=== PATIENT | female | born 1945 | race Caucasian/White ===

== ENCOUNTER → 2017-07-01 | Outpatient (CLI) | payer OTHER, MEDICAID ==
[~2017-07-01] MED LIST: BENICAR40 MG PO; BENTYL10 MG PO; CIPRO250 M1 PO; CIPRO500 MG PO; CIPROFLOXACIN500 M1 PO; COZAAR; COZAAR 25 MG TA25 M1 PO; COZAAR 50 MG TA50 M1 PO; COZAAR100 MG PO; DIOVAN320 MG PO; FENTANYL PA25 MCG/HR TP; FLAGYL500 MG PO; FLEXERIL PO; FLONASE 0.05%50 MCG NASAL; HYDROCHLOROTH12.5 M1 PO; HYDROCHLOROTH12.5 MG PO; HYDROCHLOROTHIA25 M2 PO; K-DUR 20 MEQ T20 MEQ PO; KLOR-CON 10 ER10 MEQ PO; LEXAPRO 10 MG T10 MG PO; LIDODERM 5%1 PATCH TOP; LYRICA 75 MG CA75 MG PO; MAGNESIUM OXID400 MG PO; MINIPRIN81 MG PO; MIRALAX17 GM PO; NEURONTIN 300300 M1 PO; NEXIUM40 MG PO; NORVASC2.5 MG PO; PERCOCET 5-3251 EACH PO; POTASSIUM20 PO; QUESTRAN PACKET4 GM PO; RANITIDINE 150150 M1 PO; SIMVASTATIN40 MG PO; TOPROL XL50 MG PO; TRAMADOL 50 MG50 MG PO; ULTRAM50 MG PO; ZANTAC 150MG T150 MG PO; ZOFRAN ODT4 MG PO
[2017-07-01 10:26] LABS: CALCIUM 9.3 mg/dL (8.5-10.1); CREATININE 0.9 mg/dL (0.6-1.3); POTASSIUM 4.1 mmol/L (3.5-5.1)
== END ==
LOC: M.LAB 01:32
PROVIDERS: Anesthesiology
DX: E87.1 Hypo-osmolality and hyponatremia (principal)

== ENCOUNTER 2017-11-11 16:49 | Inpatient (IN) | payer OTHER, MEDICAID ==
[~2017-11-11] VITALS: Ht 162.6 cm; Wt 62.1 kg
[~2017-11-11 16:49] MED LIST changes: -MIRALAX17 GM PO; -NORVASC2.5 MG PO
[2017-11-11 16:50] VITALS: BP 169/69
[2017-11-11 17:10] LABS: ABSOLUTE LYMPHOCYTES 1.6 thou/uL (0.8-5.3); ABSOLUTE MONOCYTES 0.3 thou/uL (0.0-1.2); ABSOLUTE NEUTROPHILS 6.1 thou/uL (1.6-8.1); BASOPHILS 0.4 %; EOSINOPHILS 0.4 %; HEMOGLOBIN 10.8 gm/dL (12.0-15.0); LYMPHOCYTES 20.2 %; MCH 32.6 pg (26.0-34.0); MCHC 34.8 g/dL (28.0-37.0); MCV 93.7 fL (80.0-100.0); MONOCYTES 3.6 %; MPV 6.7 fl. (7.2-11.1); NUCLEATED RBCS 0 /100WBC; PLATELET COUNT* 263 thou/uL (150-400); POLYS 75.4 %; RBC 3.31 mil/uL (4.20-5.00); RDW-CV 13.2 % (10.5-14.5); WBC 8.2 thou/uL (4.0-11.0)
[2017-11-11 17:21] LABS: ANION GAP 7 mmol/L (7-16); BUN 6 mg/dL (7-18); CALCIUM 7.9 mg/dL (8.5-10.1); CHLORIDE 96 mmol/L (98-107); CO2 27 mmol/L (21-32); CREATININE 0.8 mg/dL (0.6-1.3); GLUCOSE 94 mg/dL (70-99); POTASSIUM 3.9 mmol/L (3.5-5.1); SODIUM 130 mmol/L (136-145)
[2017-11-11 17:27] LABS: ALBUMIN 3.2 g/dL (3.4-5.0); ALKALINE PHOSPHATASE 54 U/L (46-116); LIPASE 97 U/L (73-393); SGOT 25 U/L (15-37); SGPT 19 U/L (30-65); TOTAL BILIRUBIN 0.4 mg/dL (<0.1-1.0); TOTAL PROTEIN 5.9 g/dL (6.4-8.2); TROPONIN-I LEVEL <0.06 ng/mL (<0.06)
[2017-11-11 17:29] LABS: APTT 27.4 Seconds (25.0-31.3); INR 1.1; PROTIME 10.7 Seconds (9.20-11.50)
[2017-11-11 18:46] LABS: URINE BILIRUBIN NEGATIVE (Negative); URINE BLOOD TRACE (Negative); URINE CLARITY CLEAR; URINE COLOR YELLOW; URINE GLUCOSE-RANDOM NEGATIVE (Negative); URINE KETONES NEGATIVE (Negative); URINE LEUKOCYTES-REFLEX NEGATIVE (Negative); URINE NITRITE-REFLEX NEGATIVE (Negative); URINE PROTEIN NEGATIVE (Negative); URINE SPECIFIC GRAVITY <= 1.005 (1.005-1.030); URINE UROBILINOGEN 0.2 E.U./dl (0.2-1.0)
[2017-11-11 21:30] VITALS: BP 111/67
[2017-11-11 21:31] VITALS: BP 147/52
--- NOTE | 2017-11-12 00:43 | NUR ---
2123 ALERT AND ORIENTED X 4 FEMALE PATIENT TO BED 114 BY CART FROM ER IN STABLE CONDITION. ADMISSION ROUTINES IN PROGRESS. 1 LITER SOAPS SUDS ENEMA PROVIDED AT 2200. PATIENT TOLERATED WELL AND WAS ABLE TO RETAIN ALL OF ENEMA FOR 15 MINUTES. MOD LARGE RETURN MOSTLY WATERY WITH SOME THICKER LIQUID STOOL TOWARDS END. NO FORMED BM. PINK AB-RECTAL AREA. CREAM APPLIED. VITAL SIGNS STABLE. PATIENT REFUSED ALL PM ORAL MEDICATIONS. IVF'S PER ORDERS. PATIENT CURRENTLY RESTING QUIETLY. CONTINUE TO MONITOR.
[2017-11-12 04:41] VITALS: BP 133/47
[2017-11-12 04:43] LABS: HEMATOCRIT 30.8 % (37.0-47.0); HEMOGLOBIN 10.6 gm/dL (12.0-15.0); MCH 32.6 pg (26.0-34.0); MCHC 34.4 g/dL (28.0-37.0); MCV 94.6 fL (80.0-100.0); MPV 7.4 fl. (7.2-11.1); RBC 3.26 mil/uL (4.20-5.00); RDW-CV 13.4 % (10.5-14.5); WBC 8.2 thou/uL (4.0-11.0)
--- NOTE | 2017-11-12 05:02 | NUR ---
PATIENT HAS REMAINED ALERT AND ORIENTED X 4 FROM ARRIVAL TO UNIT AND RESTING AT INTERVALS ON HOURLY ROUNDS. HAD AN ADDITIONAL SMALL HARD BM DURING THE NIGHT AFTER EARLIER ENEMA RETURN. MEDICATED X 1 FOR GENRALIZED ACHES. VITAL SIGNS STABLE. CONTINUE TO MONITOR.
[2017-11-12 05:05] LABS: CALCIUM 7.7 mg/dL (8.5-10.1); CREATININE 0.8 mg/dL (0.6-1.3); POTASSIUM 3.9 mmol/L (3.5-5.1)
[2017-11-12 05:09] LABS: MAGNESIUM 1.6 mg/dL (1.8-2.4); TOTAL BILIRUBIN 0.4 mg/dL (<0.1-1.0); TOTAL PROTEIN 5.1 g/dL (6.4-8.2)
[2017-11-12 08:00] VITALS: BP 124/58
[2017-11-12] MEDS ORDERED: MIRALAX17 GM PO (09:17)
--- NOTE | 2017-11-12 10:36 | EKG ---
[place] [address] ELECTROCARDIOGRAM REPORT Name: ANGLE HERNANDEZ Room: [address] ADM IN M.R.#: [id number] Admission: 11/11/17 Attend Phys: Linda Fraire MD Discharge: Date of : 41 Report #: [id number] THIS REPORT FOR: //name// [facility] ED Test Date: 2017-11-11 Test Time: 16:55:39 Pat Name: ANGLE HERNANDEZ Department: Room: [facility] Gender: F Survey Superintendent: ARISTIDES : 1945 Requested By: Dustin Anderson Order Number: [id number] MD: Stef Juarez Measurements Intervals [place] Rate: 57 P: 79 IA: 154 QRS: 67 QRSD: 95 T: 65 QT: 431 QTc: 420 Interpretive Statements Sinus rhythm Nonspecific T abnormalities, anterior leads Compared to ECG 01/11/2017 12:42:33 No significant changes Electronically Signed On 11-12-2017 10:36:06 CDT by Stef Juarez [email or web address] <ELECTRONICALLY SIGNED> By: Stef Juarez MD, [facility] 11/12/17 1036 1655 1655 Stef Juarez MD, [facility] /EPI
--- NOTE | 2017-11-12 10:56 | NUR ---
SW met with pt to complete initial assessment, introduce self, and SW role as well as discuss dc planning. Pt alert, oriented, pleasant. Pt lives at home alone in an Independent Living apt at [facility]. Pt says she has nice neighbors and supportive staff at [facility]. Pt hopeful to be able to dc home later today and has a son or friend who would be able to provide ride home. No other known dc needs at this time. Pt expressed interest in spiritual care visit and communion, SW spoke with Niyah who plans to visit with pt.
--- NOTE | 2017-11-12 11:09 | NUR ---
6471 ASSUMED CARE OF PATIENT. PLEASE SEE DOCUMENTED ASSESSMENT. PATIENT WANTS NO MORE LAXATIVES AND SAYS ABDOMINAL PAIN IS RESOLVED.
--- NOTE | 2017-11-12 11:14 | NUR ---
1030 BARBOZA CATHETER REMOVED. PLAN IS FOR DISCHARGE LATER
[2017-11-12 12:35] VITALS: BP 124/58
--- NOTE | 2017-11-12 13:26 | NUR ---
IV DISCONTINUED AND DISCHARGE EDUCATION COMPLETED
== END 2017-11-12 13:50 | disposition home or self-care (01) | DRG 389 ==
LOC: M.ERS 16:49 → M.TBA-ER 18:31 → M.ORTHSURG 18:31
PROVIDERS: Family Medicine; ADMIT Internal Medicine
DX: K56.41 Fecal impaction (principal); E87.1 Hypo-osmolality and hyponatremia; I10 Essential (primary) hypertension; K21.9 Gastro-esophageal reflux disease without esophagitis; R33.9 Retention of urine, unspecified; F32.9 Major depressive disorder, single episode, unspecified; E78.00 Pure hypercholesterolemia, unspecified; G89.29 Other chronic pain; M54.9 Dorsalgia, unspecified; K58.9 Irritable bowel syndrome, unspecified; F17.210 Nicotine dependence, cigarettes, uncomplicated; Z90.49 Acquired absence of other specified parts of digestive tract; Z90.710 Acquired absence of both cervix and uterus; Z79.51 Long term (current) use of inhaled steroids; Z79.899 Other long term (current) drug therapy; Z88.5 Allergy status to narcotic agent; Z88.8 Allergy status to other drugs, medicaments and biological substances; Z80.8 Family history of malignant neoplasm of other organs or systems; Z83.3 Family history of diabetes mellitus

== ENCOUNTER 2018-02-11 06:29 | Inpatient (IN) | payer OTHER, MEDICAID ==
[~2018-02-11] VITALS: Ht 162.6 cm; Wt 58.1 kg
[~2018-02-11 06:29] MED LIST changes: +MIRALAX17 GM PO
[2018-02-11 06:31] VITALS: BP 119/55
[2018-02-11] MEDS ORDERED: NORVASC2.5 MG PO (06:40)
[2018-02-11] MEDS ORDERED: SIMVASTATIN40 MG PO (06:40)
[2018-02-11] MEDS ORDERED: DIOVAN320 MG PO (06:40)
[2018-02-11 06:58] LABS: ABSOLUTE EOSINOPHILS 0.1 thou/uL (0.0-0.7); ABSOLUTE LYMPHOCYTES 1.1 thou/uL (0.8-5.3); ABSOLUTE MONOCYTES 0.3 thou/uL (0.0-1.2); ABSOLUTE NEUTROPHILS 7.6 thou/uL (1.6-8.1); BASOPHILS 0.3 %; EOSINOPHILS 1.3 %; HEMATOCRIT 36.7 % (37.0-47.0); HEMOGLOBIN 12.3 gm/dL (12.0-15.0); LYMPHOCYTES 11.8 %; MCH 31.9 pg (26.0-34.0); MCHC 33.5 g/dL (28.0-37.0); MCV 95.3 fL (80.0-100.0); MONOCYTES 2.9 %; NUCLEATED RBCS 0 /100WBC; PLATELET COUNT* 307 thou/uL (150-400); POLYS 83.7 %; RBC 3.85 mil/uL (4.20-5.00); RDW-CV 13.1 % (10.5-14.5); WBC 9.1 thou/uL (4.0-11.0)
[2018-02-11 07:03] LABS: CALCIUM 8.6 mg/dL (8.5-10.1); POTASSIUM 3.6 mmol/L (3.5-5.1)
[2018-02-11 07:07] LABS: ALBUMIN 3.5 g/dL (3.4-5.0); TOTAL BILIRUBIN 0.2 mg/dL (<0.1-1.0); TOTAL PROTEIN 6.4 g/dL (6.4-8.2)
[2018-02-11 08:55] VITALS: BP 128/55
[2018-02-11 11:29] VITALS: BP 116/62
[2018-02-11 16:00] VITALS: BP 103/45
[2018-02-11 20:40] VITALS: BP 112/57
[2018-02-12 04:14] LABS: HEMOGLOBIN 10.6 gm/dL (12.0-15.0); MCH 32.6 pg (26.0-34.0); MCHC 34.2 g/dL (28.0-37.0); MCV 95.3 fL (80.0-100.0); MPV 7.4 fl. (7.2-11.1); RBC 3.25 mil/uL (4.20-5.00); RDW-CV 13.5 % (10.5-14.5); WBC 4.6 thou/uL (4.0-11.0)
[2018-02-12 04:21] LABS: CALCIUM 8.4 mg/dL (8.5-10.1); CREATININE 0.7 mg/dL (0.6-1.3); MAGNESIUM 1.3 mg/dL (1.8-2.4); POTASSIUM 3.4 mmol/L (3.5-5.1)
[2018-02-12 04:43] LABS: URINE BILIRUBIN NEGATIVE (Negative); URINE BLOOD TRACE (Negative); URINE CLARITY CLEAR; URINE COLOR YELLOW; URINE GLUCOSE-RANDOM NEGATIVE (Negative); URINE KETONES NEGATIVE (Negative); URINE LEUKOCYTES-REFLEX TRACE (Negative); URINE NITRITE-REFLEX NEGATIVE (Negative); URINE PROTEIN NEGATIVE (Negative); URINE UROBILINOGEN 0.2 E.U./dl (0.2-1.0)
[2018-02-12 05:02] LABS: MUCUS 4-6 Moderate strn/LPF (None Seen); RENAL EPITHELIAL CELLS 0-3 Few /LPF (None Seen); SQUAMOUS 0-3 Few /LPF (0-3)
[2018-02-12 05:03] LABS: BACTERIA-REFLEX 1-9 Few /HPF (None Seen); CRYSTALS None Seen /LPF (None Seen); URINE RBC 0-2 Rare /HPF (0-2); URINE WBC-REFLEX 0-5 Rare /HPF (0-5)
[2018-02-12 05:04] LABS: HYALINE CASTS 4-10 Moderate /LPF (None Seen)
[2018-02-12 05:06] VITALS: BP 118/49
[2018-02-12 12:00] VITALS: BP 120/48
[2018-02-12 16:00] VITALS: BP 106/61
[2018-02-12 19:45] VITALS: BP 119/42
[2018-02-13 04:00] VITALS: BP 123/60
[2018-02-13 08:20] VITALS: BP 126/59
[2018-02-13 14:30] VITALS: BP 126/59
== END 2018-02-13 15:40 | disposition home or self-care (01) | DRG 392 ==
LOC: M.ERS 06:29 → M.TBA-ER 07:42 → M.3W 07:42
PROVIDERS: Emergency Medicine; ADMIT Internal Medicine
DX: A08.4 Viral intestinal infection, unspecified (principal); I10 Essential (primary) hypertension; F17.210 Nicotine dependence, cigarettes, uncomplicated; K21.9 Gastro-esophageal reflux disease without esophagitis; F32.9 Major depressive disorder, single episode, unspecified; R55 Syncope and collapse; E78.00 Pure hypercholesterolemia, unspecified; E86.0 Dehydration; K58.0 Irritable bowel syndrome with diarrhea; Z88.5 Allergy status to narcotic agent; Z88.8 Allergy status to other drugs, medicaments and biological substances; Z90.49 Acquired absence of other specified parts of digestive tract; Z90.711 Acquired absence of uterus with remaining cervical stump; Z79.899 Other long term (current) drug therapy

== ENCOUNTER 2018-03-04 14:45 | Emergency (ER) | payer OTHER, MEDICAID ==
[~2018-03-04] VITALS: Ht 162.6 cm; Wt 54.9 kg
[~2018-03-04 14:45] MED LIST changes: +NORVASC2.5 MG PO
[2018-03-04] MEDS ORDERED: CHOLESTYRAMINE P4 GM PO (14:59)
[2018-03-04] MEDS ORDERED: PROBIOTIC1 EAC1 PO (15:00)
[2018-03-04] MEDS ORDERED: VITAMIN B-12500 MCG PO (15:00)
[2018-03-04 15:23] LABS: ABSOLUTE EOSINOPHILS 0.1 thou/uL (0.0-0.7); ABSOLUTE LYMPHOCYTES 1.9 thou/uL (0.8-5.3); ABSOLUTE MONOCYTES 0.4 thou/uL (0.0-1.2); BASOPHILS 0.4 %; EOSINOPHILS 1.4 %; HEMATOCRIT 31.8 % (37.0-47.0); HEMOGLOBIN 10.9 gm/dL (12.0-15.0); LYMPHOCYTES 35.4 %; MCH 32.2 pg (26.0-34.0); MCHC 34.2 g/dL (28.0-37.0); MCV 94.2 fL (80.0-100.0); MONOCYTES 6.7 %; NUCLEATED RBCS 0 /100WBC; PLATELET COUNT* 310 thou/uL (150-400); POLYS 56.1 %; RBC 3.37 mil/uL (4.20-5.00); WBC 5.4 thou/uL (4.0-11.0)
[2018-03-04 15:30] LABS: ANION GAP 7 mmol/L (7-16); BUN 7 mg/dL (7-18); CALCIUM 8.6 mg/dL (8.5-10.1); CHLORIDE 98 mmol/L (98-107); CO2 30 mmol/L (21-32); CREATININE 0.7 mg/dL (0.6-1.3); GLUCOSE 83 mg/dL (70-99); POTASSIUM 4.1 mmol/L (3.5-5.1); SODIUM 135 mmol/L (136-145)
[2018-03-04 15:41] LABS: APTT 26.6 Seconds (25.0-31.3); PROTIME 10.5 Seconds (9.20-11.50)
[2018-03-04 15:42] LABS: ALBUMIN 3.6 g/dL (3.4-5.0); ALKALINE PHOSPHATASE 73 U/L (46-116); NT-PRO BRAIN NAT PEPTIDE 177 pg/mL (<300); SGOT 26 U/L (15-37); SGPT 28 U/L (30-65); TOTAL BILIRUBIN 0.2 mg/dL (<0.1-1.0); TOTAL PROTEIN 6.3 g/dL (6.4-8.2); TROPONIN-I LEVEL <0.06 ng/mL (<0.06)
[2018-03-04 16:29] VITALS: BP 130/56
--- NOTE | 2018-03-05 12:59 | EKG ---
[place] [address] ELECTROCARDIOGRAM REPORT Name: ANGLE HERNANDEZ Room: [facility]#: [id number] Admission: 03/04/18 Attend Phys: Discharge: 03/04/18 Date of : 41 Report #: [id number] THIS REPORT FOR: //name// [facility] ED Test Date: 2018-03-04 Test Time: 15:40:55 Pat Name: ANGLE HERNANDEZ Department: Room: Gender: F Micro Paleontologist: RIGOBERTO : 1945 Requested By: Dustin Anderson Order Number: [id number] MD: Blair Sandhu Measurements Intervals [place] Rate: 56 P: 89 ME: 171 QRS: 68 QRSD: 101 T: 68 QT: 432 QTc: 417 Interpretive Statements Sinus rhythm Compared to ECG 11/11/2017 16:55:39 T-wave abnormality no longer present Electronically Signed On 03-05-2018 12:59:36 CONSTRUCTION PLANT OPERATOR by Blair Sandhu [email or web address] <ELECTRONICALLY SIGNED> By: Blair Sandhu MD, [facility] 03/05/18 1259 1540 1540 Blair Sandhu MD, FAC /EPI
== END 2018-03-04 16:29 | disposition home or self-care (01) ==
LOC: M.ERS 14:45
PROVIDERS: Family Medicine
DX: R53.1 Weakness (principal); I10 Essential (primary) hypertension; F32.9 Major depressive disorder, single episode, unspecified; K21.9 Gastro-esophageal reflux disease without esophagitis; E78.00 Pure hypercholesterolemia, unspecified; K58.9 Irritable bowel syndrome, unspecified; F17.210 Nicotine dependence, cigarettes, uncomplicated; Z88.5 Allergy status to narcotic agent; Z88.6 Allergy status to analgesic agent; Z88.8 Allergy status to other drugs, medicaments and biological substances; Z91.011 Allergy to milk products; Z90.49 Acquired absence of other specified parts of digestive tract; Z90.711 Acquired absence of uterus with remaining cervical stump; Z98.890 Other specified postprocedural states

== ENCOUNTER → 2019-04-17 | Outpatient (CLI) | payer MEDICARE, MEDICAID ==
[~2019-04-17] MED LIST changes: +CHOLESTYRAMINE P4 GM PO; +PROBIOTIC1 EAC1 PO; +VITAMIN B-12500 MCG PO
== END ==
LOC: M.RAD 11:38
DX: M79.672 Pain in left foot (principal); M25.572 Pain in left ankle and joints of left foot

== ENCOUNTER → 2019-05-30 | Outpatient (CLI) | payer MEDICARE, MEDICAID | LOC: M.RAD 16:07 | DX: J84.10 Pulmonary fibrosis, unspecified (principal) ==

== ENCOUNTER → 2019-12-10 | Outpatient (CLI) | payer OTHER, MEDICAID ==
[2019-12-10 11:48] LABS: ABSOLUTE EOSINOPHILS 0.1 thou/uL (0.0-0.7); ABSOLUTE LYMPHOCYTES 2.1 thou/uL (0.8-5.3); ABSOLUTE MONOCYTES 0.4 thou/uL (0.0-1.2); ABSOLUTE NEUTROPHILS 3.1 thou/uL (1.6-8.1); BASOPHILS 0.5 %; EOSINOPHILS 1.1 %; HEMOGLOBIN 12.4 gm/dL (12.0-15.0); LYMPHOCYTES 37.3 %; MCH 33.6 pg (26.0-34.0); MCHC 35.5 g/dL (28.0-37.0); MCV 94.5 fL (80.0-100.0); MONOCYTES 6.6 %; NUCLEATED RBCS 0 /100WBC; PLATELET COUNT* 298 thou/uL (150-400); POLYS 54.5 %; WBC 5.6 thou/uL (4.0-11.0)
[2019-12-10 11:58] LABS: CALCIUM 8.6 mg/dL (8.5-10.1); CREATININE 0.9 mg/dL (0.6-1.3); TOTAL BILIRUBIN 0.3 mg/dL (<0.1-1.0)
[2019-12-10 12:49] LABS: ESR (SEDRATE) 8 mm/hr (0-30)
== END ==
LOC: M.LAB 11:27
PROVIDERS: ATTEND Internal Medicine Gastroenterology
DX: D64.9 Anemia, unspecified (principal); R19.7 Diarrhea, unspecified

== ENCOUNTER → 2019-12-18 | Outpatient (CLI) | payer OTHER, MEDICAID | LOC: M.RAD 11-07 13:20 | PROVIDERS: ATTEND Family Medicine | DX: Z12.31 Encounter for screening mammogram for malignant neoplasm of breast (principal); M81.0 Age-related osteoporosis without current pathological fracture; N95.1 Menopausal and female climacteric states ==

== ENCOUNTER → 2020-05-07 | Outpatient (CLI) | payer OTHER, MEDICAID | LOC: M.MRI 12:54 | PROVIDERS: ATTEND Orthopaedic Surgery | DX: M16.11 Unilateral primary osteoarthritis, right hip (principal); M16.12 Unilateral primary osteoarthritis, left hip; M25.451 Effusion, right hip ==

== ENCOUNTER → 2020-05-27 | Outpatient (CLI) | payer OTHER, MEDICAID ==
[~2020-05-27] MED LIST changes: +CALCIUM CITRAT1 EA14 PO; +CIMETIDINE 400400 MG PO; +FLONASE 0.05%50 MCG NARES; +VITAMIN C1000 MG PO; +VITAMIN D-40010 MCG PO; +ZINC50 M1 PO
[2020-05-27 11:09] LABS: ABSOLUTE MONOCYTES 0.5 thou/uL (0.0-1.2); BASOPHILS 0.7 %; EOSINOPHILS 0.3 %; HEMATOCRIT 34.5 % (37.0-47.0); HEMOGLOBIN 11.8 gm/dL (12.0-15.0); LYMPHOCYTES 30.5 %; MCH 31.9 pg (26.0-34.0); MCHC 34.1 g/dL (28.0-37.0); MCV 93.7 fL (80.0-100.0); MONOCYTES 7.4 %; MPV 6.9 fl. (7.2-11.1); NUCLEATED RBCS 0 /100WBC; PLATELET COUNT* 284 thou/uL (150-400); POLYS 61.1 %; RBC 3.69 mil/uL (4.20-5.00); RDW-CV 12.7 % (10.5-14.5); WBC 6.6 thou/uL (4.0-11.0)
[2020-05-27 11:20] LABS: APTT 26.6 Seconds (25.0-31.3); PROTIME 10.5 Seconds (9.20-11.50)
[2020-05-27 11:37] LABS: ALBUMIN 3.7 g/dL (3.4-5.0); CALCIUM 9.4 mg/dL (8.5-10.1); CREATININE 0.9 mg/dL (0.6-1.3); POTASSIUM 4.5 mmol/L (3.5-5.1); TOTAL BILIRUBIN 0.4 mg/dL (<0.1-1.0); TOTAL PROTEIN 6.4 g/dL (6.4-8.2)
[2020-05-27 12:18] LABS: ESR (SEDRATE) 10 mm/hr (0-30)
--- NOTE | 2020-05-27 17:50 | EKG ---
[place] [address] ELECTROCARDIOGRAM REPORT Name: ANGLE HERNANDEZ Room: [facility]#: [id number] Admission: 05/27/20 Attend Phys: Nader Alcaraz Discharge: Date of : 41 Date of Service: 05/27/20 1110 Report #: [id number] THIS REPORT FOR: //name// [facility] Test Date: 2020-05-27 Test Time: 11:10:06 Pat Name: ANGLE HERNANDEZ Department: Room: Gender: F Delicate Fabrics Presser: : 1945 Requested By: Hussain Whitehead Order Number: [id number] MD: Morro Mercado Measurements Intervals [place] Rate: 49 P: 90 PA: 158 QRS: 69 QRSD: 99 T: 59 QT: 448 QTc: 405 Interpretive Statements Sinus bradycardia Compared to ECG 03/04/2018 15:40:55 Sinus rhythm no longer present Electronically Signed On 05-27-2020 17:49:59 SWITCHBOARD WIRER by Morro Mercado [email or web address] <ELECTRONICALLY SIGNED> By: Morro Mercado MD, [facility] 05/27/20 1749 1110 1110 Morro Mercado MD, [facility] /EPI
== END ==
LOC: M.LAB 07:00
PROVIDERS: ATTEND Orthopaedic Surgery
DX: Z01.812 Encounter for preprocedural laboratory examination (principal); Z20.822 Contact with and (suspected) exposure to COVID-19; M16.11 Unilateral primary osteoarthritis, right hip; R00.1 Bradycardia, unspecified

== ENCOUNTER 2020-06-06 08:10 | Inpatient (IN) | payer OTHER, MEDICAID ==
[~2020-06-06] VITALS: Ht 162.6 cm; Wt 54.0 kg
--- NOTE | ~2020-06-06 | OP ---
[address] [address] OPERATIVE REPORT Name: ANGLE HERNANDEZ Room: [address] M.R.#: [id number] Admission: 06/06/20 Attend Phys: Linda Fraire MD Discharge: Date of : 41 Report #: [id number] THIS REPORT FOR: cc: Venecia Torres Maggie M. DO ~ Hussain Whitehead DO DATE OF SERVICE: 06/06/2020 PREOPERATIVE DIAGNOSIS: Primary osteoarthritis of right hip. POSTOPERATIVE DIAGNOSIS: Primary osteoarthritis of right hip. PROCEDURE: Right total hip arthroplasty, direct anterior approach. SURGEON: Hussain Whitehead DO PLUG ASSEMBLER: Yon Mayfield DO SECOND CHUTE BOSS: Stiven Herman DO ANESTHESIA: General with local periarticular block. FLUIDS: Lactated Ringer's. ANTIBIOTICS: A 2 g Ancef IV preoperatively. DRAINS: None. SPECIMENS: None. ESTIMATED BLOOD LOSS: 200 mL. COMPLICATIONS: None. ORTHOPEDIC IMPLANTS: Biomet G7 50 mm diameter, porous plasma cementless acetabular shell, two 6.5 mm bone screws, one 30 mm in length, one 25 mm in length for additional acetabular fixation, 36 mm inner diameter, vitamin E highly cross-linked polyethylene high wall acetabular liner, a 36 mm outer diameter Option ceramic head with standard neck length taper sleeve and a size-10 standard offset Taperloc complete stem. Other 1 gram of tranexamic acid IV preoperatively. HISTORY: The patient is a 74-year-old female with longstanding history of right hip pain. She has known advanced osteoarthritis [place] [address] OPERATIVE REPORT Name: ANGLE HERNANDEZ AUGUST Room: [address] [place].#: [id number] Admission: 06/06/20 Attend Phys: Linda Fraire MD Discharge: Date of : 41 Report #: [id number] show [id number] articulation, subchondral sclerosis, periarticular osteophytes. She has failed nonoperative treatment. She presents today for right total hip arthroplasty, direct anterior approach. Risks, benefits, complications, indications, alternatives were discussed. She has voiced understanding, signed consent and elected to proceed. Risks include but not limited to fracture, infection, neurovascular injury, continued pain, loss of motion, need for subsequent revision surgery, leg length inequality, instability, dislocation of the right hip joint, DVT, PE, OK, stroke, and even . DESCRIPTION OF PROCEDURE: The patient was taken to the operative suite and placed in supine position, given benefit of general anesthetic, placed on a [place] table against perineal post. Both feet were placed in traction boots. All bony prominences were well padded. Right hip sterilely prepped and draped in a standard fashion. Proper operative site was confirmed through standard timeout technique. Direct anterior approach was taken to the right hip. Lateral circumflex vessels were identified, cauterized and incised. Anterior capsule was exposed. It was treated with Aquamantys for hemostasis and anterior capsulectomy was performed. Femoral neck cut was then made with an oscillating saw. Utilizing a napkin ring technique, the head and neck were removed. Retractors were repositioned for acetabular exposure. Labral debridement was performed, Bovie knife and then reaming was initiated up in sequential fashion to a 49 mm diameter reamer. C-arm fluoroscopic images confirmed appropriate depth and circumference of reaming. Thorough irrigation of the acetabulum revealed circumferential punctate bleeding. I then implanted the above-mentioned acetabular shell in a press-fit fashion under C-arm fluoroscopic guidance. Two 6.5 mm bone screws were placed for additional acetabular fixation at this time and the above-mentioned polyethylene liner was implanted. I turned my attention to the proximal femur. Appropriate capsular releases were performed along with leg positioning and external elevating hook to [place] table was able to achieve excellent proximal femoral exposure. Intramedullary canal was accessed with rat tail rasp and then broaching was initiated up in sequential fashion to a size-10 broach which was left in place for trialing. Trialing of a standard neck length and standard offset construct provided excellent intraoperative stability. C-arm fluoroscopic images confirmed appropriate implant placement sizing as well as leg length and offset. The hip was dislocated. Trials were removed. Thorough irrigation was performed. Final stem was implanted in press-fit fashion. A final head was impacted on the Wilcox taper. The hip was reduced. Intraoperative stability checks were excellent. Final C-arm fluoroscopic images confirmed appropriate implant placement sizing as well as leg length and offset. Thorough irrigation was performed. Hemostasis shown to be appropriate. Periarticular blocks utilized containing Marcaine, epinephrine, Toradol and normal saline. Tensor fascia was then closed with a #2 Quill suture in a running fashion. Subcuticular closure was performed with 2-0 Vicryl in simple inverted interrupted fashion. Skin was closed with a [address] [address] OPERATIVE REPORT Name: ANGLE HERNANDEZ AUGUST Room: [facility] [place].#: [id number] Admission: 06/06/20 Attend Phys: Linda Fraire MD Discharge: Date of : 41 Report #: [id number] running 3-0 Stratafix subcuticular suture with Dermabond on the skin. Sterile dressings were applied. The patient tolerated the procedure well. Needle and sponge counts correct x 2. The patient was taken to recovery room in stable condition. IHussain DO, attest that I was present and scrubbed in for the entirety of the case excluding skin closure. By: 1156 [id number] Whitehead DO /nt
[2020-06-06 09:30] VITALS: BP 143/62
[2020-06-06 15:15] VITALS: BP 122/63
--- NOTE | 2020-06-06 15:15 | NUR ---
PT TO UNIT FROM PACU. REPORT FROM MICHELLE COLLADO. PT PLACED ON 2L O2 PER THIS RN. PER REPORT PT DOES SMOKE CIGARETTES.
[2020-06-06 16:02] VITALS: BP 119/58
--- NOTE | 2020-06-06 16:20 | NUR ---
PT SLEEPING SOUNDLY. DAUGHTER,CANDI AT BEDSIDE. SHE ANSWERED THE QUESTIONS. PT.LIVES ALONE AT [facility]. IT IS A SR.APT. BUT PROVIDES NO SERVICES EXCEPT FOR A INTERNAL MEDICINE PHYSICIAN ASSISTANT ON SITE. PT.IS INDEPENDENT. HAS A WALKER IN ROOM FROM HOME. SHE ALSO HAS A STOOL RISER AND BSC AT HOME IF NEEDED. CANDI SAID SHE AND HER BROTHER,HOLLAND WILL BE TAKING TURNS STAYING WITH PT. AT HER APT. FOR SEVERAL DAYS. GILL LANCE AND RN WILL CHECK COPAY TOMORORW. SHE HAD NO FURTHER QUESTIONS. DEPENDING ON ORDERS PT.MY HAVE SELF DIRECTED THERAPY ORDERS FOR HOME.
--- NOTE | 2020-06-06 18:11 | NUR ---
PT DENIES PAIN AT THIS TIME. PT REMAINS SUPINE FOR COMFORT. BED SHARMA PLACED UNDER PATIENT, BUT UNABLE TO VOID. IV FLUIDS REMAIN INFUSING. DAUGHTER JUST LEFT. ENCOURAGED TO CALL FOR UPDATE. BED ALARM IN PLACE. CALL LIGHT WITHIN REACH AND INSTRUCTED TO CALL FOR ASSISTANCE. ICE PACK ON RIGHT HIP. PT CAME FROM POST OP TO UNIT WITH GLASSES AND UPPER/LOWER DENTURES. PT TOLERATING PO INTAKE WELL. NO NAUSEA. PT ATE 75% OF DINNER. PT COMFORTABLE AT THIS TIME. PT ON Q2 TURNS. BANDAGE REMAINS IN PLACE ON LEFT HIP. NO DRAINAGE NOTED. PT ON PULSE OX. PT TURNED UP TO 4L PER NC. STATES SHE IS SLEEPY AFTER DINNER. PREVIOUSLY AT 2L FOR SHIFT. WILL CONTINUE TO MONITOR.
[2020-06-06 19:50] VITALS: BP 104/41
[2020-06-07] VITALS (7 sets, daily range): BP systolic 97–122; BP diastolic 39–69
[2020-06-07 04:28] LABS: HEMATOCRIT 27.4 % (37.0-47.0); HEMOGLOBIN 9.4 gm/dL (12.0-15.0)
--- NOTE | 2020-06-07 04:41 | NUR ---
PT A&O X 4, VSS ON 2L WITH CONTINUOUS PULSE OX MONITOR. PAIN MANAGED WITH OXY IR. DENIED N/V. UP TO BSC WITH MAX ASSIST. DRESSING TO RT HIP C/D/I. JESSICA VARGAS, SCD IN PLACE BILAT. IVF INFUISING. CALL LIGHT WITHIN REACH. WILL CONTINUE TO MONITOR.
--- NOTE | 2020-06-07 13:14 | NUR ---
PT WBAT S/P R EMRE. PER PT RECOMMENDATION, PT APPROPRIATE FOR DC TO HOME WITH HH. NO SKILLED ACUTE OT NEEDED AT THIS TIME.
--- NOTE | 2020-06-07 14:13 | NUR ---
CM INFORMED BY RN IN-CHARGE OF THE PT OF CONCERNS ABOUT PT D/C TO HOME. PT ONLY ABLE TO WALK 20' WITH PHYSICAL THERAPY. PER PREVIOUS CM NOTE THE PT RESIDES IN A APT AND HER FAMILY PLANS TO STAY WITH HER AT D/C TO ASSIST. CM SPOKE TO PT TO DISCUSS HH. PT IN AGREEMENT AND HAS NO PREFERENCE OF HH. PT IN AGREEMENT WITH [facility]. CM FAXED PT'S FACESHEET AND H&P TO [facility]. PT'S D/C AND HH ORDERS WILL NEED TO BE FAXED TO [facility] PRIOR TO D/C. CM ALSO INFORMED THE PT THAT THE CO-PAY AMT FOR HER T[place] IS $4.20. PT IN AGREEMENT AND INFORMS THAT SHE IS ABLE TO PAY FOR IT. CM WILL REMAIN AVAILABLE TO ASSIST AND FOLLOW NEEDED. [facility] PHONE: [phone] FAX: [phone]
--- NOTE | 2020-06-07 20:04 | NUR ---
1800- PT REMAINS CONFUSED. SON AT BEDSIDE. PT VERY FORGETFUL AND AGITATED. PT WILL NOT FOLLOW COMMANDS AND STAY IN BED. PT UP WITH RN AND TECH WITH GAIT BELT. PT VERBALIZES PAIN, BUT WILL NOT TAKE MEDICATION. PT TEARFUL. STATES SHE WAS NOT TOLD THAT SHE WOULD NEED TO STAY INPATIENT OR THAT IT WOULD HURT SO BAD. SPOKE TO PATIENT'S DAUGHTER CANDI ON THE PHONE. INFORMED MEDICATION WAS FOR SAFETY AND AGITATION. PT HAS SHALLOW REPSIRATIONS. PLACED ON O2 THIS AFTERNOON. PT NEEDS 2-4L PER NC. PT HAS NOT SLEPT TODAY. WORKED WITH THERAPY X 2. MD AND FAMILY AWARE. SCIENCE ANALYST AWARE. PT EVENTUALLY CALMED DOWN AND GOT INTO BED. SITTER REMAINS AT BEDSIDE. WILL CONTINUE TO MONITOR. PT SON IS ELAINA EDGE @ [phone]. OK TO SPEAK WITH HIM.
[2020-06-08 04:06] LABS: HEMATOCRIT 26.7 % (37.0-47.0)
--- NOTE | 2020-06-08 04:06 | NUR ---
PT A&O, AGITATED, FORGETFUL AT TIMES. ON 2L BY NC. PAIN MANAGED WITH OXY IR. DRESSING TO RT HIP INTACT. UP TO BSC WITH 2. IVF INFUISING ORDERED. PT SLEPT ON AND OFF. SITTER AT BEDSIDE. WILL CONTINUE TO MONITOR.
[2020-06-08 08:00] VITALS: BP 129/43
[2020-06-08 16:20] VITALS: BP 101/48
--- NOTE | 2020-06-08 18:52 | NUR ---
PT ALERT. FORGETFUL AND CONFUSED AT TIMES. IV FLUIDS REMAIN INFUSING. PT HAS O2 PER NC @ 2L. PT RESTING IN BED. PRN MEDS GIVEN FOR PAIN. DAUGHTER VISTED WITH PATIENT FOR A COUPLE HOURS. PT AGIATED THIS AM, BUT HAS CALMED DOWN. CALL LIGHT WITHIN REACH. PT UP TO CHAIR. WORKED WITH THERAPY. UP MOST OF THE DAY. WILL CONTINUE TO MONITOR.
[2020-06-08 20:00] VITALS: BP 121/61
--- NOTE | 2020-06-09 04:10 | NUR ---
PT A&O X 4. VSS ON 1L O2 BY NC. MEDS GIVEN ORDERED. PAIN MANAGED WITH SCHEDULED TYLENOL. UP TO BSC WITH 1. DRESSING C/D/I. PT SLEPT MOST OF THE NIGHT. CALL LIGHT WITHIN REACH. WILL CONTINUE TO MOITOR.
[2020-06-09 07:05] VITALS: BP 124/54
[2020-06-09 09:56] VITALS: BP 124/54
[2020-06-09 11:28] VITALS: BP 124/54
[2020-06-09 12:32] VITALS: BP 124/54
--- NOTE | 2020-06-09 12:48 | NUR ---
PT GIVEN DISCHARGE INFORMATION, CARE NOTES, AND PRESCRIPTIONS, BLOOD THINNER CALLED INTO PHARMACY. HOME HEALTH SET UP. IV REMOVED. PT BELONGINGS GATHERED. PT LEFT VIA WHEELCHAIR WITH NURSING STAFF TO HOME.
--- NOTE | 2020-06-09 13:09 | NUR ---
PT.HAS DISCHARGE ORDERS TO GO HOME WITH HH. SHE HAD CHOSEN [facility] ON TUESDAY WHEN CM SPOKE WITH HER. DISCUSSED COPAY FOR ELIQUIS AND THAT IT IS READY FOR HER AT HER PHARMACY. PT.PALE. ENCOURAGED HER TO STAND UP SLOWLY TO MAKE SURE SHE DOESN'T GET DIZZY. SON PRESENT WELL FOR CONVERSATION. PT.SAID SHE IS GOING TO STAY AT HER DAUGHTER,SHADIA. ADDRESS OBTAINED AND FAXED TO [facility] ALONG WITH DISCHARGE SUMMARY,ORDERS AND MEDS. TOBIAS RAMIREZ AWARE OF ABOVE.
== END 2020-06-09 12:59 | disposition home health service (06) | DRG 469 ==
LOC: M.TBA 08:10 → M.PRE 10:17 → EDSTATUS 11:42 → M.PRE 11:48 → M.ORTHSURG 13:22
PROVIDERS: Orthopaedic Surgery; ADMIT Internal Medicine; ATTEND Internal Medicine
PROC: 0SR904A Replacement of Right Hip Joint with Ceramic on Polyethylene Synthetic Substitute, Uncemented, Open Approach (ICD-10-PCS; principal; 2020-06-06)
DX: M16.11 Unilateral primary osteoarthritis, right hip (principal); G92 Toxic encephalopathy; M81.0 Age-related osteoporosis without current pathological fracture; F17.210 Nicotine dependence, cigarettes, uncomplicated; Z88.8 Allergy status to other drugs, medicaments and biological substances; Z88.6 Allergy status to analgesic agent; Z91.011 Allergy to milk products; Z90.710 Acquired absence of both cervix and uterus; Z90.49 Acquired absence of other specified parts of digestive tract; Z28.21 Immunization not carried out because of patient refusal; Z79.899 Other long term (current) drug therapy

== ENCOUNTER 2020-06-22 21:08 | Inpatient (IN) | payer OTHER, MEDICAID ==
[~2020-06-22] VITALS: Ht 162.6 cm; Wt 51.8 kg
[2020-06-22 21:09] VITALS: BP 147/49
[2020-06-22] MEDS ORDERED: ROXICODONE5 MG PO (21:17)
[2020-06-22 21:33] LABS: ABSOLUTE LYMPHOCYTES 1.4 thou/uL (0.8-5.3); ABSOLUTE MONOCYTES 1.5 thou/uL (0.0-1.2); ABSOLUTE NEUTROPHILS 7.4 thou/uL (1.6-8.1); BASOPHILS 0.4 %; EOSINOPHILS 0.1 %; HEMATOCRIT 23.5 % (37.0-47.0); HEMOGLOBIN 8.1 gm/dL (12.0-15.0); LYMPHOCYTES 13.2 %; MCH 31.7 pg (26.0-34.0); MCHC 34.5 g/dL (28.0-37.0); MCV 91.8 fL (80.0-100.0); MONOCYTES 14.6 %; MPV 6.3 fl. (7.2-11.1); NUCLEATED RBCS 0 /100WBC; PLATELET COUNT* 557 thou/uL (150-400); POLYS 71.7 %; RBC 2.56 mil/uL (4.20-5.00); RDW-CV 13.2 % (10.5-14.5); WBC 10.3 thou/uL (4.0-11.0)
[2020-06-22 21:41] LABS: CALCIUM 8.4 mg/dL (8.5-10.1); CREATININE 0.8 mg/dL (0.6-1.3); POTASSIUM 3.4 mmol/L (3.5-5.1)
[2020-06-22 21:46] LABS: ALBUMIN 2.8 g/dL (3.4-5.0); MAGNESIUM 1.3 mg/dL (1.8-2.4); TOTAL BILIRUBIN 0.4 mg/dL (<0.1-1.0); TOTAL PROTEIN 6.5 g/dL (6.4-8.2)
[2020-06-22 21:59] LABS: URINE BILIRUBIN NEGATIVE (Negative); URINE BLOOD 2+ (Negative); URINE CLARITY CLEAR; URINE COLOR YELLOW; URINE GLUCOSE-RANDOM NEGATIVE (Negative); URINE KETONES TRACE (Negative); URINE LEUKOCYTES-REFLEX NEGATIVE (Negative); URINE NITRITE-REFLEX NEGATIVE (Negative); URINE PROTEIN NEGATIVE (Negative); URINE SPECIFIC GRAVITY 1.015 (1.005-1.030); URINE UROBILINOGEN 0.2 E.U./dl (0.2-1.0)
[2020-06-22 22:06] LABS: CASTS None Seen /LPF (None Seen); MUCUS 0-3 Light strn/LPF (None Seen); SQUAMOUS 0-3 Few /LPF (0-3); TRANSITIONAL EPITHEL CELL 0-3 Few /LPF (None Seen); URINE WBC-REFLEX 6-15 Few /HPF (0-5)
[2020-06-22 22:07] LABS: CRYSTALS None Seen /LPF (None Seen)
[2020-06-23] VITALS (9 sets, daily range): BP systolic 113–153; BP diastolic 36–64
[2020-06-23 01:19] LABS: CSF GLUCOSE 67 mg/dl (40-70); CSF PROTEIN 57.7 mg/dl (15-45)
[2020-06-23 02:51] LABS: CSF COLOR CLEAR; VOLUME 4 ml
[2020-06-23 02:52] LABS: CSF CLARITY COLORLESS; CSF COLOR COLORLESS; CSF RBC 2 /mm3; CSF WBC 0 /mm3 (0-10); VOLUME 4 ml
[2020-06-23 02:53] LABS: CSF CLARITY CLEAR; CSF RBC 1 /mm3; CSF WBC 0 /mm3 (0-10)
--- NOTE | 2020-06-23 11:22 | EKG ---
[place] [address] ELECTROCARDIOGRAM REPORT Name: ANGLE HERNANDEZ Room: [address] ADM IN M.R.#: [id number] Admission: 06/23/20 Attend Phys: Jessica Khoury MD Discharge: Date of : 41 Date of Service: 06/22/202131 Report #: [id number] THIS REPORT FOR: //name// [facility] ED Test Date: 2020-06-22 Test Time: 21:32:12 Pat Name: ANGLE HERNANDEZ Department: Room: [facility] Gender: F Publications Distribution Clerk: MD : 1945 Requested By: Lynn Marcelo Order Number: [id number] MD: Petey Yin Measurements Intervals [place] Rate: 73 P: 84 DE: 141 QRS: 62 QRSD: 104 T: 51 QT: 395 QTc: 436 Interpretive Statements Sinus rhythm Borderline low voltage, extremity leads Compared to ECG 05/27/2020 11:10:06 Sinus bradycardia no longer present Electronically Signed On 06-23-2020 11:22:40 CDT by Petey Yin [email or web address] <ELECTRONICALLY SIGNED> By: Petey Yin MD, [facility] 06/23/20 1122 31 31 Petey Yin MD, [facility] /EPI
[2020-06-24 03:52] VITALS: BP 127/60
[2020-06-24 04:57] LABS: ALBUMIN 2.1 g/dL (3.4-5.0); ALKALINE PHOSPHATASE 103 U/L (46-116); ANION GAP 11 mmol/L (7-16); BUN 7 mg/dL (7-18); CALCIUM 8.7 mg/dL (8.5-10.1); CHLORIDE 97 mmol/L (98-107); CHOLESTEROL 93 mg/dL (<200); CO2 25 mmol/L (21-32); CREATININE 0.5 mg/dL (0.6-1.3); GLUCOSE 74 mg/dL (70-99); HDL CHOLESTEROL 38 mg/dL (>40); LDL CHOLESTEROL 48 mg/dL (<100); POTASSIUM 3.7 mmol/L (3.5-5.1); SGOT 15 U/L (15-37); SGPT 13 U/L (30-65); SODIUM 133 mmol/L (136-145); TC:HDL 2.4 Ratio (Not establshd); TOTAL BILIRUBIN 0.4 mg/dL (<0.1-1.0); TRIGLYCERIDE 39 mg/dL (<150); VLDL 8 mg/dL (<40)
[2020-06-24 05:06] LABS: SERUM ASSESSMENT Clear
[2020-06-24 07:30] VITALS: BP 132/53
[2020-06-24 12:01] VITALS: BP 121/45
[2020-06-24 12:54] LABS: HEMATOCRIT 23.6 % (37.0-47.0); HEMOGLOBIN 7.7 gm/dL (12.0-15.0); MCH 30.4 pg (26.0-34.0); MCHC 32.6 g/dL (28.0-37.0); MCV 93.4 fL (80.0-100.0); RBC 2.52 mil/uL (4.20-5.00); RDW-CV 13.8 % (10.5-14.5); WBC 11.6 thou/uL (4.0-11.0)
[2020-06-24 15:38] VITALS: BP 141/49
[2020-06-24 19:30] VITALS: BP 120/55
[2020-06-25 00:38] VITALS: BP 147/56
[2020-06-25 05:08] VITALS: BP 126/52
[2020-06-25] MEDS ORDERED: AMOX TR-K CLV1 EAC3 PO (09:31)
[2020-06-25 09:32] VITALS: BP 145/61
[2020-06-25 09:41] VITALS: BP 145/61
[2020-06-25 10:38] LABS: HEMATOCRIT 24.4 % (37.0-47.0); HEMOGLOBIN 8.1 gm/dL (12.0-15.0); MCH 30.7 pg (26.0-34.0); MCHC 33.3 g/dL (28.0-37.0); MCV 92.4 fL (80.0-100.0); MPV 7.1 fl. (7.2-11.1); RBC 2.64 mil/uL (4.20-5.00); RDW-CV 13.4 % (10.5-14.5); WBC 8.6 thou/uL (4.0-11.0)
[2020-06-25 10:48] LABS: ALBUMIN 2.1 g/dL (3.4-5.0); CALCIUM 8.1 mg/dL (8.5-10.1); CREATININE 0.5 mg/dL (0.6-1.3); POTASSIUM 3.3 mmol/L (3.5-5.1); TOTAL BILIRUBIN 0.3 mg/dL (<0.1-1.0); TOTAL PROTEIN 6.1 g/dL (6.4-8.2)
== END 2020-06-25 13:00 | disposition home or self-care (01) | DRG 75 ==
LOC: M.ERS 21:08 → M.TBA-ER 06-23 01:36 → M.2W 06-23 01:36
PROVIDERS: Internal Medicine; Personal Emergency Response Attendant; ADMIT Family Medicine; ATTEND Family Medicine
PROC: 009U3ZZ Drainage of Spinal Canal, Percutaneous Approach (ICD-10-PCS; principal; 2020-06-23)
DX: A87.9 Viral meningitis, unspecified (principal); E87.1 Hypo-osmolality and hyponatremia; E44.0 Moderate protein-calorie malnutrition; Z68.1 Body mass index [BMI] 19.9 or less, adult; N39.0 Urinary tract infection, site not specified; M81.0 Age-related osteoporosis without current pathological fracture; E86.0 Dehydration; M50.322 Other cervical disc degeneration at C5-C6 level; R63.0 Anorexia; B96.89 Other specified bacterial agents as the cause of diseases classified elsewhere; R35.0 Frequency of micturition; E78.00 Pure hypercholesterolemia, unspecified; F17.210 Nicotine dependence, cigarettes, uncomplicated; Z20.822 Contact with and (suspected) exposure to COVID-19; Z90.49 Acquired absence of other specified parts of digestive tract; Z88.5 Allergy status to narcotic agent; Z88.8 Allergy status to other drugs, medicaments and biological substances; Z28.21 Immunization not carried out because of patient refusal; Z90.711 Acquired absence of uterus with remaining cervical stump

== ENCOUNTER 2020-07-04 08:11 | Emergency (ER) | payer OTHER, MEDICAID ==
[~2020-07-04] VITALS: Ht 162.6 cm; Wt 50.4 kg
[~2020-07-04 08:11] MED LIST changes: +AMOX TR-K CLV1 EAC3 PO; +ROXICODONE5 MG PO
[2020-07-04 09:24] LABS: ABSOLUTE LYMPHOCYTES 0.7 thou/uL (0.8-5.3); ABSOLUTE MONOCYTES 0.7 thou/uL (0.0-1.2); ABSOLUTE NEUTROPHILS 5.8 thou/uL (1.6-8.1); BASOPHILS 0.4 %; EOSINOPHILS 0.2 %; HEMATOCRIT 27.9 % (37.0-47.0); HEMOGLOBIN 9.3 gm/dL (12.0-15.0); LYMPHOCYTES 10.1 %; MCHC 33.1 g/dL (28.0-37.0); MCV 90.6 fL (80.0-100.0); MONOCYTES 9.2 %; MPV 6.6 fl. (7.2-11.1); NUCLEATED RBCS 0 /100WBC; PLATELET COUNT* 452 thou/uL (150-400); POLYS 80.1 %; RBC 3.08 mil/uL (4.20-5.00); RDW-CV 14.6 % (10.5-14.5); WBC 7.2 thou/uL (4.0-11.0)
[2020-07-04 09:41] LABS: CALCIUM 9.1 mg/dL (8.5-10.1); CREATININE 0.8 mg/dL (0.6-1.3); POTASSIUM 4.2 mmol/L (3.5-5.1)
[2020-07-04 09:45] LABS: ALBUMIN 3.4 g/dL (3.4-5.0); TOTAL BILIRUBIN 0.3 mg/dL (<0.1-1.0); TOTAL PROTEIN 7.4 g/dL (6.4-8.2)
[2020-07-04 10:29] LABS: URINE BILIRUBIN NEGATIVE (Negative); URINE BLOOD TRACE (Negative); URINE CLARITY CLEAR; URINE COLOR YELLOW; URINE GLUCOSE-RANDOM NEGATIVE (Negative); URINE KETONES TRACE (Negative); URINE LEUKOCYTES-REFLEX NEGATIVE (Negative); URINE NITRITE-REFLEX NEGATIVE (Negative); URINE PROTEIN NEGATIVE (Negative); URINE SPECIFIC GRAVITY 1.015 (1.005-1.030); URINE UROBILINOGEN 0.2 E.U./dl (0.2-1.0)
[2020-07-04] MEDS ORDERED: LACTULOSE PO (13:40)
[2020-07-04] MEDS ORDERED: KRISTALOSE20 GM PO (13:40)
[2020-07-04 14:11] VITALS: BP 132/64
--- NOTE | 2020-07-04 15:18 | EKG ---
[place] [address] ELECTROCARDIOGRAM REPORT Name: ANGLE HERNANDEZ Room: [facility]#: [id number] Admission: 07/04/20 Attend Phys: Discharge: 07/04/20 Date of : 41 Date of Service: 07/04/2034 Report #: [id number] THIS REPORT FOR: //name// [facility] ED Test Date: 2020-07-04 Test Time: 08:34:10 Pat Name: ANGLE HERNANDEZ Department: Room: Gender: Grounds Caretaker[facility] : 1945 Requested By: Derrick Pinto Order Number: [id number] MD: Stef Juarez Measurements Intervals [place] Rate: 63 P: 88 DC: 146 QRS: 75 QRSD: 90 T: 75 QT: 441 QTc: 452 Interpretive Statements Sinus rhythm Compared to ECG 06/22/2020 21:32:12 No significant changes Electronically Signed On 07-04-2020 15:18:35 CDT by Stef Juarez [email or web address] <ELECTRONICALLY SIGNED> By: Stef Juarez MD, [facility] 07/04/20 1518 0834 0834 Stef Juarez MD, [facility] /EPI
== END 2020-07-04 14:11 | disposition home or self-care (01) ==
LOC: M.ERS 08:11
PROVIDERS: Emergency Medicine
DX: K59.00 Constipation, unspecified (principal); E78.00 Pure hypercholesterolemia, unspecified; F17.210 Nicotine dependence, cigarettes, uncomplicated; Z88.5 Allergy status to narcotic agent; Z91.011 Allergy to milk products; Z90.711 Acquired absence of uterus with remaining cervical stump; Z90.49 Acquired absence of other specified parts of digestive tract

== ENCOUNTER 2020-07-05 23:42 | Emergency (ER) | payer OTHER, MEDICAID ==
[~2020-07-05] VITALS: Ht 162.6 cm; Wt 50.4 kg
[~2020-07-05 23:42] MED LIST changes: +KRISTALOSE20 GM PO; +LACTULOSE PO
[2020-07-06 01:13] LABS: URINE BILIRUBIN NEGATIVE (Negative); URINE BLOOD NEGATIVE (Negative); URINE CLARITY CLEAR; URINE COLOR STRAW; URINE GLUCOSE-RANDOM NEGATIVE (Negative); URINE KETONES NEGATIVE (Negative); URINE LEUKOCYTES-REFLEX NEGATIVE (Negative); URINE NITRITE-REFLEX NEGATIVE (Negative); URINE PROTEIN NEGATIVE (Negative); URINE SPECIFIC GRAVITY <= 1.005 (1.005-1.030); URINE UROBILINOGEN 0.2 E.U./dl (0.2-1.0)
[2020-07-06 01:25] LABS: ABSOLUTE EOSINOPHILS 0.1 thou/uL (0.0-0.7); ABSOLUTE MONOCYTES 0.7 thou/uL (0.0-1.2); ABSOLUTE NEUTROPHILS 4.7 thou/uL (1.6-8.1); BASOPHILS 0.6 %; EOSINOPHILS 1.9 %; HEMATOCRIT 29.1 % (37.0-47.0); HEMOGLOBIN 9.8 gm/dL (12.0-15.0); LYMPHOCYTES 26.7 %; MCH 30.5 pg (26.0-34.0); MCHC 33.6 g/dL (28.0-37.0); MCV 90.7 fL (80.0-100.0); MPV 6.2 fl. (7.2-11.1); NUCLEATED RBCS 0 /100WBC; PLATELET COUNT* 457 thou/uL (150-400); POLYS 61.8 %; RBC 3.21 mil/uL (4.20-5.00); RDW-CV 15.1 % (10.5-14.5); WBC 7.6 thou/uL (4.0-11.0)
[2020-07-06 01:30] LABS: CREATININE 0.9 mg/dL (0.6-1.3); POTASSIUM 3.7 mmol/L (3.5-5.1)
[2020-07-06 01:34] LABS: ALBUMIN 3.5 g/dL (3.4-5.0); MAGNESIUM 1.8 mg/dL (1.8-2.4); TOTAL BILIRUBIN 0.3 mg/dL (<0.1-1.0); TOTAL PROTEIN 7.2 g/dL (6.4-8.2)
[2020-07-06 03:37] VITALS: BP 149/45
--- NOTE | 2020-07-07 14:41 | EKG ---
[place] [address] ELECTROCARDIOGRAM REPORT Name: ANGLE HERNANDEZ Room: [facility]#: [id number] Admission: 07/05/20 Attend Phys: Discharge: 07/06/20 Date of : 41 Date of Service: 07/05/20 2347 Report #: [id number] THIS REPORT FOR: //name// [facility] ED Test Date: 2020-07-05 Test Time: 23:47:13 Pat Name: ANGLE HERNANDEZ Department: Room: Gender: Candy Catcher: [place] : 1945 Requested By: Lynn Marcelo Order Number: [id number] MD: Petey Yin Measurements Intervals [place] Rate: 63 P: 102 FL: 115 QRS: 69 QRSD: 127 T: 54 QT: 457 QTc: 468 Interpretive Statements Sinus rhythm Borderline short [place] interval Nonspecific intraventricular conduction delay Artifact in lead(s) I,II,III,aVF,V1,V2,V3,V4,V5,V6 and baseline wander in lead(s) V1 Compared to ECG 07/04/2020 08:34:10 Intraventricular conduction delay now present Electronically Signed On 07-07-2020 14:41:08 CDT by Petey Yin [email or web address] <ELECTRONICALLY SIGNED> By: Petey Yin MD, [facility] 07/07/20 1441 2347 2347 Petey Yin MD, [facility] /EPI
== END 2020-07-06 03:37 | disposition home or self-care (01) ==
LOC: M.ERS 23:42
PROVIDERS: Personal Emergency Response Attendant
DX: E86.0 Dehydration (principal); E78.00 Pure hypercholesterolemia, unspecified; F17.210 Nicotine dependence, cigarettes, uncomplicated; Z88.5 Allergy status to narcotic agent; Z88.8 Allergy status to other drugs, medicaments and biological substances; Z90.711 Acquired absence of uterus with remaining cervical stump; Z90.49 Acquired absence of other specified parts of digestive tract

== ENCOUNTER 2020-07-07 22:05 | Emergency (ER) | payer OTHER, MEDICAID ==
[~2020-07-07] VITALS: Ht 162.6 cm; Wt 50.4 kg
[2020-07-07 22:42] LABS: ABSOLUTE EOSINOPHILS 0.1 thou/uL (0.0-0.7); ABSOLUTE LYMPHOCYTES 2.3 thou/uL (0.8-5.3); ABSOLUTE MONOCYTES 0.6 thou/uL (0.0-1.2); ABSOLUTE NEUTROPHILS 3.6 thou/uL (1.6-8.1); BASOPHILS 0.7 %; EOSINOPHILS 0.9 %; HEMOGLOBIN 9.6 gm/dL (12.0-15.0); MCV 90.8 fL (80.0-100.0); MONOCYTES 8.6 %; MPV 6.4 fl. (7.2-11.1); NUCLEATED RBCS 0 /100WBC; PLATELET COUNT* 451 thou/uL (150-400); POLYS 54.8 %; RDW-CV 15.1 % (10.5-14.5); WBC 6.6 thou/uL (4.0-11.0)
[2020-07-07 22:47] LABS: CALCIUM 9.6 mg/dL (8.5-10.1); CREATININE 0.8 mg/dL (0.6-1.3); POTASSIUM 3.6 mmol/L (3.5-5.1)
[2020-07-07 22:52] LABS: ALBUMIN 3.6 g/dL (3.4-5.0); MAGNESIUM 1.6 mg/dL (1.8-2.4); TOTAL BILIRUBIN 0.3 mg/dL (<0.1-1.0); TOTAL PROTEIN 7.1 g/dL (6.4-8.2)
[2020-07-07 22:55] LABS: URINE BILIRUBIN NEGATIVE (Negative); URINE BLOOD TRACE (Negative); URINE CLARITY CLEAR; URINE COLOR STRAW; URINE GLUCOSE-RANDOM NEGATIVE (Negative); URINE KETONES NEGATIVE (Negative); URINE LEUKOCYTES-REFLEX NEGATIVE (Negative); URINE NITRITE-REFLEX NEGATIVE (Negative); URINE PROTEIN NEGATIVE (Negative); URINE UROBILINOGEN 0.2 E.U./dl (0.2-1.0)
[2020-07-08 01:25] VITALS: BP 134/44
--- NOTE | 2020-07-08 14:17 | EKG ---
[place] [address] ELECTROCARDIOGRAM REPORT Name: ANGLE HERNANDEZ Room: [facility]#: [id number] Admission: 07/07/20 Attend Phys: Discharge: 07/08/20 Date of : 41 Date of Service: 07/07/202211 Report #: [id number] THIS REPORT FOR: //name// [facility] ED Test Date: 2020-07-07 Test Time: 22:12:13 Pat Name: ANGLE HERNANDEZ Department: Room: Gender: Installation Specialist: [place] : 1945 Requested By: Farrah Bee Order Number: [id number] MD: Morro Mercado Measurements Intervals [place] Rate: 61 P: 82 [place]: 146 QRS: 73 QRSD: 115 T: 66 QT: 443 QTc: 447 Interpretive Statements Sinus rhythm Compared to ECG 07/05/2020 23:47:13 No significant changes Electronically Signed On 07-08-2020 14:17:08 CDT by Morro Mercado [email or web address] <ELECTRONICALLY SIGNED> By: Morro Mercado MD, [facility] 07/08/20 1417 221 11 Morro Mercado MD, [facility] /EPI
== END 2020-07-08 01:25 | disposition home or self-care (01) ==
LOC: M.ERS 22:05
PROVIDERS: Emergency Medicine
DX: R51.9 Headache, unspecified (principal); E78.00 Pure hypercholesterolemia, unspecified; Z88.5 Allergy status to narcotic agent; Z91.011 Allergy to milk products; Z88.8 Allergy status to other drugs, medicaments and biological substances; Z90.710 Acquired absence of both cervix and uterus

== ENCOUNTER → 2020-12-18 | Outpatient (CLI) | payer OTHER, MEDICAID | LOC: M.RAD 12-17 11:00 → M.CT 12-17 11:30 | PROVIDERS: ATTEND Family Medicine | DX: Z12.31 Encounter for screening mammogram for malignant neoplasm of breast (principal); Z12.2 Encounter for screening for malignant neoplasm of respiratory organs; M85.88 Other specified disorders of bone density and structure, other site; I70.0 Atherosclerosis of aorta; I25.10 Atherosclerotic heart disease of native coronary artery without angina pectoris; J92.9 Pleural plaque without asbestos; J84.10 Pulmonary fibrosis, unspecified; K44.9 Diaphragmatic hernia without obstruction or gangrene; M81.0 Age-related osteoporosis without current pathological fracture; Z78.0 Asymptomatic menopausal state; Z90.49 Acquired absence of other specified parts of digestive tract; Z87.891 Personal history of nicotine dependence ==

== ENCOUNTER → 2021-02-27 | Outpatient (CLI) | payer OTHER, MEDICAID ==
--- NOTE | 2021-02-27 17:33 | CARDNUC ---
[place] [address] CARDIAC NUCLEAR IMAGING REPORT Name: ANGLE HERNANDEZ Room: [facility].#: [id number] Admission: 02/27/21 Attend Phys: Venecia Torres DO Discharge: Date of : 41 Date of Service: 02/27/21 1733 Report #: [id number] THIS REPORT FOR: cc: Venecia Torres Maggie M. DO Liston, Michael J. MD [facility] ~ APPROVED REPORT Imaging Protocol: Stress Tc-99m/Rest Tc-99m 1 day Study performed: 02/27/2021 11:16:17 Indication: CAD Patient Location: Out-Patient Stress Nurse: Talya Russ RN Ht: 5 ft 4 in Wt: 123 lbs BSA: 1.59 m2 BMI: 21.11 Medical History Medical History: HTN, Hyperlipidemia Medications: amlosipine, simvastatin Allergies: eggs, fentanyl lactose, morphine, hydrocodone Cardiac Risk Factors: Age, HTN, Hyperlipidemia, Smoking Exercise History: Sedentary Resting Data Rest SPECT myocardial perfusion imaging was performed in supine position 30 minutes following the intravenous injection of 9.8 mCi of Tc-99m Sestamibi. Time of rest injection: 10:10 The images were gated to evaluate regional wall motion and calculate left ventricular ejection fraction. Administration Route: IV Administration Site: Right Wrist Pharmacologic Stress Pharmacologic stress test was performed by injecting Regadenoson 0.4 mg IV push over 10-15 seconds immediately followed by the intravenous injection of 30.3 mCi of Tc-99m Sestamibi. Time of stress injection: 11:15 Administration Route: IV Administration Site: Right Wrist Heart Rate at time of stress injection: 72 bpm. Gated Stress SPECT was performed 45 [place] [address] CARDIAC NUCLEAR IMAGING REPORT Name: ANGLE HERNANDEZ Room: [facility] NANCY Bean#: [id number] Admission: 02/27/21 Attend Phys: Venecia Torres DO Discharge: Date of : 41 Date of Service: 02/27/21 1733 Report #: [id number] injection. The images were gated to evaluate regional wall motion and calculate left ventricular ejection fraction. Prone imaging was performed. Stress Test Details Stress Test: Pharmacologic stress testing performed using 0.4 mg of regadenoson per 5 mL given IV over 10 seconds. Reason for pharmacologic stress test: physical limitation. HR Max Heart Rate (APMHR): 143 bpm Resting HR: 54 bpm Target HR (85% APMHR): 121 bpm Max HR Achieved: 72 bpm % of APMHR: 50 Recovery HR: 64 bpm BP Resting BP: 133/74 mmHg Max BP: 117/60 mmHg Recovery BP: 123/64 mmHg ECG Resting ECG: Sinus Rhythm Stress ECG: Sinus Rhythm ST Change: None Arrhythmia: None Recovery ECG: Sinus Rhythm Recovery ST Change: None Recovery Arrhythmia: None Clinical Reason for Termination: Completed protocol The patient tolerated Lexiscan infusion without significant cardiac symptoms. Stress ECG Conclusion Baseline twelve-lead EKG shows sinus rhythm without significant ST segment or T wave abnormality. EKGs obtained during and post Lexiscan stress show sinus rhythm with no significant ST segment or T wave changes when compared to baseline. There were no stress-induced arrhythmias. Study Quality Study: Good Artifact: [place] [address] CARDIAC NUCLEAR IMAGING REPORT Name: ANGLE HERNANDEZ MAIKOL [id number] Admission: 02/27/21 Attend Phys: Venecia Torres DO Discharge: Date of : 41 Date of Service: 02/27/21 1733 Report #: [id number] At rest, the left ventricular ejection fraction was 76%.. Post stress, the left ventricular ejection was 77%.. TID = 1.05. Perfusion Perfusion images obtained at rest and post Lexiscan stress show uniform uptake of the radioisotope throughout the myocardium. There were no defects to suggest infarct or ischemia. Wall Motion Normal left ventricular wall motion. Nuclear Conclusion ECG Findings: negative for ischemia Clinical Findings: negative for ischemia Nuclear Findings: negative for ischemia Exercise Capacity: not assessed Left Ventricular Function: normal Risk Study: low Perfusion images show no defect to suggest infarct or ischemia. Left ventricular systolic function appears normal on gated studies. This is a low risk study. <Conclusion> Baseline twelve-lead EKG shows sinus rhythm without significant ST segment or T wave abnormality. EKGs obtained during and post Lexiscan stress show sinus rhythm with no significant ST segment or T wave changes when compared to baseline. There were no stress-induced arrhythmias. <ELECTRONICALLY SIGNED> By: Morro Mercado MD, FACC 02/27/21 1733 1733 1733 Morro Mercado MD, FACC /INF
== END ==
LOC: M.CRD 02-05 10:00 → M.NUC 02-05 10:00 → M.CRD 09:00 → M.NUC 09:45
PROVIDERS: ATTEND Family Medicine
DX: I10 Essential (primary) hypertension (principal); R07.9 Chest pain, unspecified

== ENCOUNTER → 2021-04-15 | Outpatient (CLI) | payer OTHER, MEDICAID | LOC: M.MRI 04-01 11:30 | PROVIDERS: ATTEND Family Medicine | DX: M47.22 Other spondylosis with radiculopathy, cervical region (principal); M50.123 Cervical disc disorder at C6-C7 level with radiculopathy; M25.78 Osteophyte, vertebrae; M48.02 Spinal stenosis, cervical region; M48.04 Spinal stenosis, thoracic region; M51.14 Intervertebral disc disorders with radiculopathy, thoracic region ==